=== PATIENT | male | born 1980 | race Caucasian/White ===

== ENCOUNTER 2016-05-23 17:15 | Emergency (ER) | payer MEDICARE, MEDICAID ==
[2016-05-23] MEDS ORDERED: ACETAMINOPHEN 325 MG TAB ONE (19:01)
[2016-05-23] MEDS ORDERED: ONDANSETRON 4 MG VIAL ONE (19:01)
[2016-05-23] MEDS ORDERED: SODIUM CHLORIDE 0.9% 1,000 ML ONE (19:01)
[2016-05-23] MEDS ORDERED: LEVOFLOXACIN 500 MG TAB ONE (23:24)
== END 2016-05-24 00:06 | disposition home or self-care (01) ==
LOC: ER 17:15 → EMR 21:38 → UNDOADMOB 21:38 → ER 05-24 00:06
CPT/HCPCS: 74022 ×2; 74177 ×2; 96361 ×2; 96374 ×2; 99285; J2405

== ENCOUNTER 2016-05-29 18:10 | Emergency (ER) | payer MEDICARE, MEDICAID ==
[2016-05-29] MEDS ORDERED: OPTIRAY 350 100 ML VIAL HMH IV ONE (18:11)
[2016-05-29] MEDS ORDERED: MORPHINE 4 MG/ML SYR ONE (23:51)
[2016-05-29] MEDS ORDERED: ONDANSETRON 4 MG VIAL ONE (23:51)
[2016-05-29] MEDS ORDERED: CEFTRIAXONE 1 GM VIAL ONE (23:51)
[2016-05-29] MEDS ORDERED: SODIUM CHLORIDE 0.9% 1,000 ML ONE (23:52)
[2016-05-29] MEDS ORDERED: SODIUM CHLORIDE 0.9% 100 ML IV ONE (23:52)
== END 2016-05-30 02:02 | disposition home or self-care (01) ==
LOC: ER 18:10
CPT/HCPCS: 36415 ×2; 71020 ×2; 74177 ×2; 80053 ×2; 81001 ×2; 83690 ×2; 85025 ×2; 87088 ×2; 87804 ×2; 96361 ×2; 96365 ×2; 96366 ×2; 96375 ×2; 99285; J0696; J2270; J2405; Q9967

== ENCOUNTER 2016-06-02 13:46 | Inpatient (IN) | payer MEDICARE, MEDICAID ==
[~2016-06-02] VITALS: Ht 175.3 cm; Wt 86.7 kg
[2016-06-02 14:50] VITALS: BP_SYST 108; BP_SYST 112; RESP 18; TEMP 99.3; Ht 175.3 cm; Wt 86.7 kg
[2016-06-02] MEDS ORDERED: TUBERCULIN PPD 5 UNIT SYR ID.VACC ONE (15:40)
[2016-06-02] MEDS ORDERED: PHARMACY TO DOSE MERREM XX SCH (17:00)
[2016-06-02] MEDS ORDERED: **NOTE TO NURSE XX SCH (17:08)
[2016-06-02] MEDS: SACCHA BOULARDII 250MG CAP PO SCH ×2 (17:09→20:25)
[2016-06-02] MEDS ORDERED: DIVALPROEX DR 500 MG TAB PO SCH (17:45)
[2016-06-02] MEDS: PANTOPRAZOLE 40 MG TAB PO SCH (17:53)
[2016-06-02 18:44] VITALS: TEMP 100
[2016-06-02] MEDS: DIVALPROEX DR 500 MG TAB PO SCH (20:24)
[2016-06-02] MEDS: CARBAMAZEPINE 200 MG TAB PO SCH (20:25)
[2016-06-02] MEDS: risperiDONE 3 MG TAB PO SCH (20:25)
[2016-06-02 20:31] VITALS: BP_SYST 96; RESP 20; TEMP 98.5
[2016-06-02] MEDS ORDERED: Ibuprofen 400 MG TAB PO SCH (21:00)
[2016-06-02] MEDS ORDERED: MISSING DOSE XX ONE (21:25)
[2016-06-02] MEDS: ONDANSETRON 4 MG TAB PO PRN (23:03)
[2016-06-03] VITALS (8 sets, daily range): BP systolic 104–118; RESP 16–20; TEMP 98.9–101
[2016-06-03] MEDS: PANTOPRAZOLE 40 MG TAB PO SCH ×2 (06:20→16:33)
[2016-06-03] MEDS: SACCHA BOULARDII 250MG CAP PO SCH ×3 (08:02→20:42)
[2016-06-03] MEDS ORDERED: PROPOFOL 50ML PER ML IV ONE (10:39)
[2016-06-03] MEDS ORDERED: LIDOCAINE 2% SYR 5 ML IV ONE (10:39)
[2016-06-03] MEDS: IRON SUCROSE COMPLEX 500 MG in SODIUM CHLORIDE 0.9% 250 ML IV SCH (11:33)
[2016-06-03] MEDS: ONDANSETRON 4 MG TAB PO PRN (17:21)
[2016-06-03] MEDS: DIVALPROEX DR 500 MG TAB PO SCH (20:42)
[2016-06-03] MEDS: risperiDONE 3 MG TAB PO SCH (20:43)
[2016-06-03] MEDS: CARBAMAZEPINE 200 MG TAB PO SCH (20:43)
[2016-06-03] MEDS ORDERED: MAG HYDROX 30 ML UDC PO ONE (22:00)
[2016-06-03] MEDS: DOCUSATE SOD 100 MG CAP PO SCH (23:59)
[2016-06-04] VITALS (14 sets, daily range): BP systolic 107–158; RESP 16–24; TEMP 98.6–99.6
[2016-06-04] MEDS ORDERED: SALINE FLUSH 10 ML FLUSH PRN (05:40)
[2016-06-04] MEDS: SODIUM CHLORIDE 0.9% FLUSH BAG 500 ML IV PRN (06:24)
[2016-06-04] MEDS: PANTOPRAZOLE 40 MG TAB PO SCH ×2 (06:24→17:18)
[2016-06-04] MEDS: SACCHA BOULARDII 250MG CAP PO SCH ×3 (10:08→20:23)
[2016-06-04] MEDS: DOCUSATE SOD 100 MG CAP PO SCH (10:10)
[2016-06-04] MEDS: SALINE FLUSH 10 ML FLUSH SCH ×2 (10:11→20:22)
[2016-06-04] MEDS: IRON SUCROSE COMPLEX 500 MG in SODIUM CHLORIDE 0.9% 250 ML IV SCH (13:39)
[2016-06-04] MEDS ORDERED: SKIN TEST: READ AND RECORD XX SCH (16:00)
[2016-06-04] MEDS: risperiDONE 3 MG TAB PO SCH (20:23)
[2016-06-04] MEDS: DIVALPROEX DR 500 MG TAB PO SCH (20:23)
[2016-06-04] MEDS: CARBAMAZEPINE 200 MG TAB PO SCH (20:24)
[2016-06-05] VITALS (10 sets, daily range): BP systolic 88–124; RESP 18; TEMP 97.4–101.6
[2016-06-05] MEDS: PANTOPRAZOLE 40 MG TAB PO SCH ×2 (06:10→15:42)
[2016-06-05] MEDS: SODIUM CHLORIDE 0.9% FLUSH BAG 500 ML IV PRN (06:11)
[2016-06-05] MEDS: SALINE FLUSH 10 ML FLUSH SCH ×2 (07:59→20:26)
[2016-06-05] MEDS: DOCUSATE SOD 100 MG CAP PO SCH ×2 (08:00→08:03)
[2016-06-05] MEDS: SACCHA BOULARDII 250MG CAP PO SCH ×3 (08:00→20:26)
[2016-06-05] MEDS ORDERED: ACETAMINOPHEN 325 MG TAB PO PRN ×2 (08:35→20:35)
[2016-06-05] MEDS ORDERED: IBUPROFEN LQ 120 ML BTL PO PRN (14:50)
[2016-06-05] MEDS ORDERED: MISSING DOSE XX ONE (15:15)
[2016-06-05] MEDS: COLCHICINE 0.6 MG TAB PO SCH ×2 (15:30→20:26)
[2016-06-05] MEDS: Ibuprofen 400 MG TAB PO SCH (15:39)
[2016-06-05] MEDS: AZITHROMYCIN 500 MG in SODIUM CHLORIDE 0.9% 250 ML IV SCH (18:48)
[2016-06-05] MEDS: DIVALPROEX DR 500 MG TAB PO SCH (20:25)
[2016-06-05] MEDS: risperiDONE 3 MG TAB PO SCH (20:26)
[2016-06-05] MEDS: CARBAMAZEPINE 200 MG TAB PO SCH (20:27)
[2016-06-06] MEDS: Ibuprofen 400 MG TAB PO SCH ×3 (00:30→14:36)
[2016-06-06 03:59] VITALS: BP_SYST 102; RESP 20; TEMP 98.4
[2016-06-06] MEDS: SODIUM CHLORIDE 0.9% FLUSH BAG 500 ML IV PRN (05:53)
[2016-06-06] MEDS: PANTOPRAZOLE 40 MG TAB PO SCH ×2 (06:00→16:37)
[2016-06-06 07:22] VITALS: BP_SYST 103; RESP 18; TEMP 98.3
[2016-06-06] MEDS: SALINE FLUSH 10 ML FLUSH SCH ×2 (07:30→20:14)
[2016-06-06] MEDS: COLCHICINE 0.6 MG TAB PO SCH ×2 (08:43→20:14)
[2016-06-06] MEDS: DOCUSATE SOD 100 MG CAP PO SCH ×2 (08:43→08:45)
[2016-06-06] MEDS: SACCHA BOULARDII 250MG CAP PO SCH ×3 (08:43→20:14)
[2016-06-06 11:18] VITALS: BP_SYST 109; RESP 18; TEMP 98.5
[2016-06-06] MEDS: AZITHROMYCIN 500 MG in SODIUM CHLORIDE 0.9% 250 ML IV SCH (11:18)
[2016-06-06 16:29] VITALS: BP_SYST 115; RESP 18; TEMP 99.3
[2016-06-06] MEDS: ENOXAPARIN 40 MG/0.4 ML SYR SUBQ SCH (16:36)
[2016-06-06] MEDS: DIVALPROEX DR 500 MG TAB PO SCH (20:14)
[2016-06-06] MEDS: CARBAMAZEPINE 200 MG TAB PO SCH (20:14)
[2016-06-06] MEDS: risperiDONE 3 MG TAB PO SCH (20:14)
[2016-06-06] MEDS: PRAVASTATIN 40 MG TAB PO SCH (20:14)
[2016-06-06 20:15] VITALS: BP_SYST 110; RESP 18; TEMP 99.5
[2016-06-06 23:32] VITALS: BP_SYST 100; RESP 18; TEMP 98.4
[2016-06-07] MEDS: Ibuprofen 400 MG TAB PO SCH ×4 (00:26→22:29)
[2016-06-07 04:11] VITALS: BP_SYST 100; RESP 18; TEMP 97.8
[2016-06-07] MEDS: PANTOPRAZOLE 40 MG TAB PO SCH ×2 (06:27→15:38)
[2016-06-07 07:11] VITALS: BP_SYST 105; RESP 16; TEMP 98.8
[2016-06-07] MEDS: SALINE FLUSH 10 ML FLUSH SCH ×2 (08:04→20:29)
[2016-06-07] MEDS: COLCHICINE 0.6 MG TAB PO SCH ×2 (08:04→20:30)
[2016-06-07] MEDS: DOCUSATE SOD 100 MG CAP PO SCH ×2 (08:04→08:13)
[2016-06-07] MEDS: ENOXAPARIN 40 MG/0.4 ML SYR SUBQ SCH (08:05)
[2016-06-07] MEDS: SACCHA BOULARDII 250MG CAP PO SCH ×3 (08:05→20:30)
[2016-06-07 11:23] VITALS: BP_SYST 116; RESP 18; TEMP 98.6
[2016-06-07] MEDS: AZITHROMYCIN 500 MG in SODIUM CHLORIDE 0.9% 250 ML IV SCH (11:28)
[2016-06-07 15:06] VITALS: BP_SYST 124; RESP 20; TEMP 98.5
[2016-06-07 20:00] VITALS: BP_SYST 107; RESP 18; TEMP 99
[2016-06-07] MEDS: risperiDONE 3 MG TAB PO SCH (20:29)
[2016-06-07] MEDS: CARBAMAZEPINE 200 MG TAB PO SCH (20:30)
[2016-06-07] MEDS: PRAVASTATIN 40 MG TAB PO SCH (20:30)
[2016-06-07] MEDS: DIVALPROEX DR 500 MG TAB PO SCH (20:30)
[2016-06-07 23:19] VITALS: BP_SYST 121; RESP 18; TEMP 99
[2016-06-08 03:26] VITALS: BP_SYST 110; RESP 18; TEMP 98.5
[2016-06-08] MEDS: PANTOPRAZOLE 40 MG TAB PO SCH ×2 (06:34→15:10)
[2016-06-08] MEDS: Ibuprofen 400 MG TAB PO SCH ×2 (06:34→15:10)
[2016-06-08 07:00] VITALS: BP_SYST 114; RESP 20; TEMP 99.3
[2016-06-08] MEDS: SALINE FLUSH 10 ML FLUSH SCH (08:37)
[2016-06-08] MEDS: AZITHROMYCIN 500 MG in SODIUM CHLORIDE 0.9% 250 ML IV SCH (08:40)
[2016-06-08] MEDS: SACCHA BOULARDII 250MG CAP PO SCH ×2 (08:41→15:10)
[2016-06-08] MEDS: COLCHICINE 0.6 MG TAB PO SCH (08:42)
[2016-06-08] MEDS: DOCUSATE SOD 100 MG CAP PO SCH (08:43)
[2016-06-08] MEDS: ENOXAPARIN 40 MG/0.4 ML SYR SUBQ SCH (08:44)
[2016-06-08 11:27] VITALS: BP_SYST 107; RESP 18; TEMP 98.8
[2016-06-08 11:29] VITALS: BP_SYST 107; RESP 18; TEMP 98.8
[2016-06-08 16:53] VITALS: BP_SYST 111; RESP 20; TEMP 99.1
[2016-06-08 18:59] VITALS: BP_SYST 111; RESP 20; TEMP 99.1
== END 2016-06-08 21:05 | disposition home or self-care (01) | DRG 314 ==
LOC: ENRESERVDT → ENRESERVTM → TBA 13:46 → 3NT 14:12 → ENPENDDIS 06-03 15:14 → OBSVTOIN 06-03 15:14
PROVIDERS: ADMIT Specialist; ATTEND Specialist
PROC: 0DB98ZX Excision of Duodenum, Via Natural or Artificial Opening Endoscopic, Diagnostic (ICD-10-PCS; principal; 2016-06-04 13:00)
DX: I31.3 Pericardial effusion (noninflammatory) (principal); J18.9 Pneumonia, unspecified organism; J96.01 Acute respiratory failure with hypoxia; J90 Pleural effusion, not elsewhere classified; K65.8 Other peritonitis; N39.0 Urinary tract infection, site not specified; B34.9 Viral infection, unspecified; G40.909 Epilepsy, unspecified, not intractable, without status epilepticus; N48.6 Induration penis plastica; D50.9 Iron deficiency anemia, unspecified; Z80.8 Family history of malignant neoplasm of other organs or systems; Z80.0 Family history of malignant neoplasm of digestive organs; Z83.3 Family history of diabetes mellitus
CPT/HCPCS: 71020; 71250; 80048; 80053; 80061; 80069; 80156; 80157; 80165; 81001; 82607; 82728; 83540; 83735; 83880; 84439; 84443; 84466; 84550; 85025; 85652; 86038; 86060; 86141; 86431; 86580; 86618; 86658; 86713; 86738; 87040; 87071; 87088; 87389; 88305; 93005; 93306; 99223; 99232; 99233